=== PATIENT | female | born 1975 | race Caucasian/White ===

== ENCOUNTER 2017-03-15 11:03 | Emergency (ER) | payer MEDICAID ==
[~2017-03-15] VITALS: Ht 170.2 cm; Wt 98.1 kg
[~2017-03-15 11:03] MED LIST: ADDE20 PO; BUPR150CR PO; TRAZ150T75 PO
[2017-03-15 11:07] VITALS: BP 122/77; PULSE 64; RESP 16; TEMP 97.8; O2SAT 98
[2017-03-15] MEDS ORDERED: CELE40TA PO (11:15)
[2017-03-15] MEDS ORDERED: TRAZ150T75 PO (11:15)
--- NOTE | 2017-03-15 11:32 | PD ---
HPI Chief Complaint: ENT Complaint Time Seen by Provider: 11:19 Travel History International Travel<30 days: No Contact w/Intl Traveler<30days: No Traveled to known affect area: No History of Present Illness HPI 42 year-old female presents to the emergency room for evaluation of sinus headache, pressure, congestion, nonproductive cough, and bilateral ear pain intermittently for the past 2 months. Headache is over the frontal sinuses worse with leaning forward. States it feels like her head is full of pressure and she can feel crackling over her ethmoid sinuses. Associated chills yesterday but no objective fever. She has been taking xhfr-fne-hfxromt sinus medication since onset of symptoms. She states it is recently stopped working. Symptoms seem to be worsening. Patient was on amoxicillin 2 months ago for an unrelated dental infection at which time her symptoms improved temporarily. Denies nausea, vomiting. Patient denies any medical conditions but takes medication for mood disorder. Denies allergies. PFSH Past Medical History Diminished Hearing: No ?: Not LMP: 2 weeks ago : 4 Para: 4 Miscarriage: 0 : 0 Tubal Ligation: Yes (2005) Social History Alcohol Use: Yes ([facility]) Tobacco Use: Yes (1/2 - 1 PPD/STARTED AGE 18) Substance Use: No Allergies-Medications (Allergen,Severity, Reaction): Coded Allergies: No Known Allergies (Verified , 03/15/17) Reported Meds & Prescriptions Reported Meds & Active Scripts Active Reported Celexa (Citalopram Hydrobromide) 40 Mg Tab 40 Mg PO DAILY Trazodone (Trazodone HCl) 150 Mg Tab 150 Mg PO HS Adderall (Amphetamine-Dextroamphetamine) 20 Mg Tab 20 Mg PO DAILY Avoid late evening doses. Space doses at least 4 to 6 hours if more than once/day dosing. Review of Systems Except as stated in HPI: all other systems reviewed are Neg Physical Exam Narrative GENERAL: Well-nourished, well-developed female in no acute distress. Afebrile. Ambulatory. SKIN: Focused skin assessment warm/dry. HEAD: Atraumatic. Normocephalic. Very mild tenderness to palpation ethmoid and frontal sinuses. EYES: No scleral icterus. No injection or drainage. ENT: Mucosa pink and moist. No erythema or exudates. No uvular edema. No uvular , palatal, or tonsillar deviation. Airway patent. Nasal turbinates appear normal without nasal blood, purulent drainage or septal hematoma. EARS: Bilateral pinnae and external canals appear within normal limits. Bilateral tympanic membranes without erythema, dullness or perforation. NECK: Supple, trachea midline. No JVD or lymphadenopathy. CARDIOVASCULAR: Regular rate and rhythm without murmurs, gallops, or rubs. RESPIRATORY: Breath sounds equal bilaterally. No accessory muscle use. No crackles, rales, wheezes, or rhonchi. Data Data Last Documented VS Vital Signs Date Time Temp Pulse Resp B/P Pulse Ox O2 Delivery O2 Flow Rate FiO2 03/15/17 11:07 97.8 64 16 122/77 98 MDM Medical Decision Making Medical Screen Exam Complete: Yes Emergency Medical Condition: Yes Medical Record Reviewed: Yes Differential Diagnosis Sinusitis versus allergic rhinitis versus viral syndrome Narrative Course 42-year-old female presents to the emergency room for evaluation of sinus headache, sinus pressure, congestion, and bilateral ear fullness for the past 2 months intermittently. No history of objective fever. Patient is afebrile and well-appearing in the emergency room. Vital signs stable. Lungs sounds clear and equal bilaterally. Bilateral nares without significant, purulent congestion. No evidence of otitis media. History and physical exam are consistent with bacterial sinusitis. Patient will be given prescription for Augmentin and told to follow up with her primary care physician. She is told to return for worsening symptoms. She understands and agrees to plan. Diagnosis Primary Impression: Sinusitis Qualified Code: J01.10 - Acute frontal sinusitis, recurrence not specified Referrals: Primary Care Physician Patient Instructions: General Instructions, Sinusitis (ED) Additional Instructions: Rest and drink plenty of fluids. Take Augmentin as directed, until gone. Continue kejx-iyo-hgsclod allergy medications. Follow up with a primary care physician. Return to emergency room for worsening symptoms, as discussed. Med/Other Pt SpecificInfo: Prescription(s) given Disposition: 01 DISCHARGE HOME Condition: Stable Little Reeves March 15, 2017 11:32
[2017-03-15] MEDS ORDERED: AUGM875T PO (11:33)
[2017-04-24] MEDS ORDERED: ADDE20 PO ×3 (10:31→10:46)
[2017-05-03] MEDS ORDERED: ADDE20 PO ×2 (07:57→11:43)
[2017-05-03] MEDS ORDERED: trazodone PO ×2 (07:58→11:43)
[2017-05-03] MEDS ORDERED: CELE40TA PO (11:43)
== END 2017-03-15 11:49 | disposition home or self-care (01) ==
LOC: PHEFT 11:03
DX: J01.10 Acute frontal sinusitis, unspecified (principal); F17.200 Nicotine dependence, unspecified, uncomplicated; Z79.899 Other long term (current) drug therapy
CPT/HCPCS: 99283

== ENCOUNTER 2017-04-23 08:17 | Emergency (ER) | payer SELFPAY ==
[~2017-04-23] VITALS: Ht 170.2 cm; Wt 92.0 kg
[~2017-04-23 08:17] MED LIST changes: +AUGM875T PO; -BUPR150CR PO; +CELE40TA PO
[2017-04-23 08:20] VITALS: BP 169/85; PULSE 110; RESP 20; TEMP 97.7; O2SAT 97
--- NOTE | 2017-04-23 08:29 | PD ---
HPI Chief Complaint: Bite or Sting Time Seen by Provider: 08:25 Travel History International Travel<30 days: No Contact w/Intl Traveler<30days: No Traveled to known affect area: No History of Present Illness HPI 42-year-old female presents the emergency department status post dog bite to the left hand. Patient states it was her own dog that bit her. She was trying to separate her 2 dogs were fighting over a bone earlier this morning. Patient states this dogs are up-to-date on her shots. Her only injury is limited to the left hand. Patient has full range of motion and sensation to all fingers of the left hand. There is no injury to the wrist or forearm. Patient states the pain is throbbing and 9 out of 10. Bleeding has been controlled by pressure dressing placed in triage. She is unsure of her last tetanus shot. She has no known drug allergies. PFSH Past Medical History Diminished Hearing: No ?: Not : 4 Para: 4 Miscarriage: 0 : 0 Tubal Ligation: Yes (2005) Social History Alcohol Use: Yes ([facility]) Tobacco Use: Yes (1/2 - 1 PPD/STARTED AGE 18) Substance Use: No Allergies-Medications (Allergen,Severity, Reaction): Coded Allergies: No Known Allergies (Verified , 04/23/17) Reported Meds & Prescriptions Reported Meds & Active Scripts Active Ibuprofen 600 Mg Tab 600 Mg PO Q6H PRN Augmentin (Amoxicillin-Clavulanate) 875-125 Mg Tab 1 Tab PO BID Reported Trazodone (Trazodone HCl) 100 Mg Tablet 150 Mg PO HS Celexa (Citalopram Hydrobromide) 40 Mg Tab 40 Mg PO DAILY Adderall (Amphetamine-Dextroamphetamine) 20 Mg Tab 20 Mg PO DAILY Avoid late evening doses. Space doses at least 4 to 6 hours if more than once/day dosing. Review of Systems Except as stated in HPI: all other systems reviewed are Neg General / Constitutional: No: Fever Eyes: No: Visual changes HENT: No: Headaches Cardiovascular: No: Chest Pain or Discomfort Respiratory: No: Shortness of Breath Gastrointestinal: No: Abdominal Pain Genitourinary: No: Dysuria Musculoskeletal: No: Pain Skin: No Rash Neurologic: No: Weakness Psychiatric: No: Depression Endocrine: No: Polydipsia Hematologic/Lymphatic: No: Easy Bruising Physical Exam Narrative GENERAL: Patient appears mildly anxious and in mild to moderate distress. SKIN: Warm and dry. Normal color. Normal turgor. Patient has obvious laceration to the left dorsal hand, as well as small puncture wound to the lateral dorsal hand and first webspace. There is localized ecchymosis and swelling. There are no open wound in the palm of the left hand. HEAD: Atraumatic. Normocephalic. EYES: Pupils equal and round. No scleral icterus. No injection or drainage. ENT: No nasal bleeding or discharge. Mucous membranes pink and moist. Pharynx is clear. NECK: Trachea midline. Supple nontender. CARDIOVASCULAR: Regular rate and rhythm. RESPIRATORY: No accessory muscle use. Clear to auscultation. Breath sounds equal bilaterally. MUSCULOSKELETAL: Extremities without clubbing, cyanosis, or edema. No obvious deformities. Patient has full range of motion of the fingers of the left hand with normal hospice clinical manager and pincher motion without significant difficulty. NEUROLOGICAL: Awake and alert. No obvious cranial nerve deficits. Motor grossly within normal limits. Five out of 5 muscle strength in the arms and legs. Normal speech. PSYCHIATRIC: Appropriate mood and affect; insight and judgment normal. Data Data Last Documented VS Vital Signs Date Time Temp Pulse Resp B/P Pulse Ox O2 Delivery O2 Flow Rate FiO2 04/23/17 09:23 16 04/23/17 08:20 97.7 110 169/85 97 Room Air Orders Hand, Complete ([id number]) (04/23/17 08:29) Ice/Cold Pack (04/23/17 08:29) Tetanus/Diphtheria Tox Adult (Tetanus/Di (04/23/17 08:30) Amoxicil-Clavulanate (Augmentin) (04/23/17 08:30) Ketorolac Inj (Toradol Inj) (04/23/17 08:30) Lidocai-Epi 1%-1:100,000 Inj (Xylocaine- (04/23/17 09:00) MDM Medical Decision Making Medical Screen Exam Complete: Yes Emergency Medical Condition: Yes Differential Diagnosis Dog bite. Puncture wound. Possible fracture. Crush injury. Need for tetanus. Need for sutures. Narrative Course Patient is medically stable at time of exam. X-rays are ordered of the left hand and ice bag is placed on injured area. Patient is given 875 mg Augmentin by mouth as well as 0.5 mg tetanus IM. Hand x-ray shows no fracture, foreign body or dislocation per radiologist. Lacerations were cleaned extensively with Betadine and saline as well as hydrogen peroxide. Wounds were all closed with 5-0 Prolene. See procedure note. Patient will be continued on Augmentin 875 twice a day 7 days. Patient is also given ibuprofen 600 mg 4 times a day when necessary pain #40. Dressing is to remain in place for the next 48 hours. Patient should follow-up in 2 days with either her primary care physician or here at the emergency Department for a wound check. Sutures should remain in place for the next 7-10 days. Patient should return sooner with any worsening symptoms as needed. Procedures Procedure Narrative LACERATION #1 LOCATION: Left dorsal hand LENGTH: 1.5 cm NUMBER OF STITCHES/ESVIN: 3 interrupted horizontal mattress REPAIR: The area of the laceration was prepped with Betadine and sterilely draped. The laceration was infiltrated with 2 mL 1% lidocaine with epi. The wound was copiously irrigated and explored without evidence of foreign body, tendon injury or neurovascular injury. The wound was closed using 5-0 Prolene. This was a single layer repair. A sterile dressing was applied. The patient was advised to keep the dressing clean and dry. Patient tolerated the procedure well. LACERATION #2 LOCATION: Left first webspace LENGTH: 3 mL NUMBER OF STITCHES/ESVIN: 1 horizontal mattress REPAIR: The area of the laceration was prepped with Betadine and sterilely draped. The laceration was infiltrated with 1.5 mL 1% lidocaine with epi. The wound was copiously irrigated and explored without evidence of foreign body, tendon injury or neurovascular injury. The wound was closed using 5-0 Prolene. This was a single layer repair. A sterile dressing was applied. The patient was advised to keep the dressing clean and dry. Patient tolerated the procedure well. LACERATION #3 LOCATION: Left dorsal lateral hand LENGTH: 0.5 cm NUMBER OF STITCHES/ESVIN: 2 interrupted horizontal mattress REPAIR: The area of the laceration was prepped with Betadine and sterilely draped. The laceration was infiltrated with 1.5 mL 1% lidocaine with epi. The wound was copiously irrigated and explored without evidence of foreign body, tendon injury or neurovascular injury. The wound was closed using 5-0 Prolene. This was a single layer repair. A sterile dressing was applied. The patient was advised to keep the dressing clean and dry. Patient tolerated the procedure well. LACERATION LOCATION: Left proximal lateral palm LENGTH: 1 cm NUMBER OF STITCHES/ESVIN: 2 interrupted horizontal mattress REPAIR: The area of the laceration was prepped with Betadine and sterilely draped. The laceration was infiltrated with 2 mL 1% lidocaine with epi. The wound was copiously irrigated and explored without evidence of foreign body, tendon injury or neurovascular injury. The wound was closed using 5-0 Prolene. This was a single layer repair. A sterile dressing was applied. The patient was advised to keep the dressing clean and dry. Patient tolerated the procedure well. Diagnosis Primary Impression: Dog bite Qualified Code: W54.0XXA - Dog bite, initial encounter Referrals: Primary Care Physician Patient Instructions: Animal Bite (ED), General Instructions Additional Instructions: Patient is given 875 mg Augmentin by mouth as well as 0.5 mg tetanus IM. Hand x-ray shows no fracture, foreign body or dislocation per radiologist. Lacerations were cleaned extensively with Betadine and saline as well as hydrogen peroxide. Wounds were all closed with 5-0 Prolene. See procedure note. Patient will be continued on Augmentin 875 twice a day 7 days. Patient is also given ibuprofen 600 mg 4 times a day when necessary pain #40. Dressing is to remain in place for the next 48 hours. Patient should follow-up in 2 days with either her primary care physician or here at the emergency Department for a wound check. Sutures should remain in place for the next 7-10 days. Patient should return sooner with any worsening symptoms as needed. Med/Other Pt SpecificInfo: Prescription(s) given Scripts Ibuprofen 600 Mg Knj600 Mg PO Q6H PRN (Pain/Inflammation) #40 TAB Prov:Radha Ivy MD 04/23/17 Amoxicillin-Clavulanate (Augmentin)875-125 Mg Tab1 Tab PO BID #14 TAB Ref 0 Prov:Radha Ivy MD 04/23/17 Disposition: 01 DISCHARGE HOME Condition: Stable Douglas Schneider Apr 23, 2017 08:29
[2017-04-23] MEDS ORDERED: KETOROLAC TROMETHAMINE 60 MG/2 ML (IM) VIAL IM ONE (08:30)
[2017-04-23] MEDS ORDERED: AMOXICILLIN/CLAVULANATE K 875 MG TAB PO ONE (08:30)
[2017-04-23] MEDS ORDERED: TETANUS/DIPHTHERIA TOXOID ADULT 0.5 ML VIAL IM ONE (08:30)
[2017-04-23] MEDS ORDERED: TRAZ100T6 PO (08:33)
[2017-04-23] MEDS ORDERED: LIDOCAINE 1%/EPINEPHrine 1:100,000 SOLN 20 ML VIAL INFIL ONE (09:00)
--- NOTE | 2017-04-23 09:12 | RADRPT ---
EXAM DATE/TIME: 04/23/2017 08:41 [facility] COMPARISON: No previous studies available for comparison. INDICATIONS : Left hand pain and lacerations from dog bite. MEDICAL HISTORY : None. SURGICAL HISTORY : None. ENCOUNTER: Initial ACUITY: 1 day PAIN SCORE: 9/10 LOCATION: Left hand. FINDINGS: Multiple soft tissue lacerations noted in the left hand. No acute fracture or dislocation. No radiopa que foreign body. CONCLUSION: 1. Multiple soft tissue lacerations in the left hand without radiopaque foreign body. Alexander Osei MD on April 23, 2017 at 9:08 Board Certified Radiologist. This report was verified electronically.
[2017-04-23 09:23] VITALS: RESP 16
[2017-04-23] MEDS ORDERED: AUGM875T3 PO (09:32)
[2017-04-23] MEDS ORDERED: IBUP-232 PO (09:32)
[2017-04-24] MEDS ORDERED: ADDE20 PO ×3 (10:31→10:46)
[2017-05-03] MEDS ORDERED: ADDE20 PO ×2 (07:57→11:43)
[2017-05-03] MEDS ORDERED: trazodone PO ×2 (07:58→11:43)
[2017-05-03] MEDS ORDERED: CELE40TA PO (11:43)
== END 2017-04-23 09:45 | disposition home or self-care (01) ==
LOC: NEPD 08:17
DX: S61.452A Open bite of left hand, initial encounter (principal); F17.200 Nicotine dependence, unspecified, uncomplicated; W54.0XXA Bitten by dog, initial encounter; Z23 Encounter for immunization; Z79.899 Other long term (current) drug therapy
CPT/HCPCS: 12002; 73130; 90471; 90714; 96372; 99284; J1885; 12001

== ENCOUNTER 2017-04-25 07:19 | Emergency (ER) | payer MEDICAID ==
[~2017-04-25] VITALS: Ht 170.2 cm; Wt 92.0 kg
[~2017-04-25 07:19] MED LIST changes: -AUGM875T PO; +AUGM875T3 PO; +IBUP-232 PO; +TRAZ100T6 PO; -TRAZ150T75 PO
[2017-04-25 07:22] VITALS: BP 125/80; PULSE 85; RESP 16; TEMP 97.8; O2SAT 99
--- NOTE | 2017-04-25 07:36 | PD ---
HPI Chief Complaint: Wound/Suture/Staple Re-Check Time Seen by Provider: 07:32 Travel History International Travel<30 days: No Contact w/Intl Traveler<30days: No Traveled to known affect area: No History of Present Illness HPI 42-year-old female presents to the emergency department for recheck of her dog bite wound to her left hand that occurred 2 days ago. She was seen here 2 days ago and sutures were placed. She's been taking Augmentin as prescribed. Denies fever, vomiting. Denies paresthesias, loss of sensation, decreased range of motion to the affected extremity. No known allergies. Has no other medical complaints. No other modifying factors or associated signs and symptoms. PFSH Past Medical History Diminished Hearing: No ?: Not LMP: 03/20/17 : 4 Para: 4 Miscarriage: 0 : 0 Tubal Ligation: Yes (2005) Social History Alcohol Use: Yes ([facility]) Tobacco Use: Yes (1/2 - 1 PPD/STARTED AGE 18) Substance Use: No Allergies-Medications (Allergen,Severity, Reaction): Coded Allergies: No Known Allergies (Verified , 04/25/17) Reported Meds & Prescriptions Reported Meds & Active Scripts Active Adderall (Amphetamine-Dextroamphetamine) 20 Mg Tab 20 Mg PO 2 TABS Q AM Avoid late evening doses. Space doses at least 4 to 6 hours if more than once/day dosing. Ibuprofen 600 Mg Tab 600 Mg PO Q6H PRN Augmentin (Amoxicillin-Clavulanate) 875-125 Mg Tab 1 Tab PO BID Reported Trazodone (Trazodone HCl) 100 Mg Tablet 150 Mg PO HS Celexa (Citalopram Hydrobromide) 40 Mg Tab 40 Mg PO DAILY Review of Systems Except as stated in HPI: all other systems reviewed are Neg Physical Exam Narrative GENERAL: Well-nourished, well-developed female patient, in no acute distress; afebrile, nontoxic-appearing SKIN: Warm and dry. Multiple wound sites to the left hand are all well approximated and with sutures intact; without erythema, edema, drainage. All left fingers with full range of motion and sensory intact. Left hand is mildly edematous and without erythema. Left upper extremity supple and non-tense with 2+ radial pulse and sensory intact HEAD: Atraumatic. Normocephalic. EYES: Pupils equal and round. No scleral icterus. No injection or drainage. ENT: Mucosa pink and moist. Airway patent. NECK: Trachea midline. CARDIOVASCULAR: Regular rate. RESPIRATORY: No accessory muscle use. GASTROINTESTINAL: Rounded. MUSCULOSKELETAL: No obvious deformities. No clubbing. No cyanosis. No edema. NEUROLOGICAL: Awake and alert. Oriented 3. No obvious cranial nerve deficits. Motor grossly within normal limits. Normal speech. PSYCHIATRIC: Appropriate mood and affect; insight and judgment normal. Data Data Last Documented VS Vital Signs Date Time Temp Pulse Resp B/P Pulse Ox O2 Delivery O2 Flow Rate FiO2 04/25/17 07:22 97.8 85 16 125/80 99 MDM Medical Decision Making Medical Screen Exam Complete: Yes Emergency Medical Condition: Yes Medical Record Reviewed: Yes Differential Diagnosis Wound recheck, wound infection, medical clearance Narrative Course 42-year-old female presents for wound recheck of dog bite wounds to her left hand. All sites are well approximated with sutures intact and without signs of infection. Patient is afebrile and nontoxic-appearing. Patient is taking Augmentin as prescribed. Wound care provided. Instructed patient to continue antibiotics as prescribed. Instructed patient to return to the emergency department or follow-up with her primary care provider on Monday or Monday as previously instructed for suture removal. Patient verbalizes understanding and agreement with treatment plan. Patient is medically cleared and stable for discharge. Discussed reasons to return to the emergency department. Instructed patient to follow up with primary care provider. Patient agrees with treatment plan. The patients vital signs are stable and the patient is stable for outpatient follow-up and treatment. Patient discharged home, stable and in no acute distress. Diagnosis Primary Impression: Encounter for wound re-check Referrals: Primary Care Physician Patient Instructions: Acute Wound Care (ED), Care For Your Stitches (ED), General Instructions Additional Instructions: Continue antibiotics as prescribed and complete full course Keep area clean and dry Ibuprofen or Tylenol as directed and as needed for pain and inflammation Ice pack to area as needed to decrease pain Return to the emergency department or follow-up with primary care provider for removal of sutures as previously directed Follow up with primary care provider Return to the emergency department immediately with worsening of symptoms, particularly if reddened streaks up or down the affected extremity from the suture site, fever Med/Other Pt SpecificInfo: No Change to Meds, No Meds Exist/No RX given Disposition: DISCHARGE HOME Condition: Stable Nanette Tavares Apr 25, 2017 07:36
[2017-05-03] MEDS ORDERED: ADDE20 PO ×2 (07:57→11:43)
[2017-05-03] MEDS ORDERED: trazodone PO ×2 (07:58→11:43)
[2017-05-03] MEDS ORDERED: CELE40TA PO (11:43)
== END 2017-04-25 07:50 | disposition home or self-care (01) ==
LOC: NEPK 07:19
DX: S61.452D Open bite of left hand, subsequent encounter (principal); W54.0XXD Bitten by dog, subsequent encounter; F17.210 Nicotine dependence, cigarettes, uncomplicated
CPT/HCPCS: 99281